=== PATIENT | female | born 1940 | race Asian ===

== ENCOUNTER 2018-02-14 09:18 | Day surgery (SDC) | payer OTHER ==
[2018-02-14] MEDS ORDERED: LABETALOL HCL 20MG INJ (12:41)
[2018-02-14] MEDS ORDERED: hydrALAzine 20 MG INJ (12:42)
== END 2018-02-14 15:29 | disposition home or self-care (01) ==
LOC: GIL 09:18
DX: R19.4 Change in bowel habit (principal); D12.2 Benign neoplasm of ascending colon; D12.5 Benign neoplasm of sigmoid colon; E11.9 Type 2 diabetes mellitus without complications; E78.5 Hyperlipidemia, unspecified
CPT/HCPCS: 45380; 82962; 88305